=== PATIENT | male | born 2000 | race Caucasian/White ===

== ENCOUNTER 2023-05-05 13:00 | Emergency (ER) | payer OTHER ==
[2023-05-05 14:56] LABS: BASO % 0.8 % (0-2.0); EOS % 3.9 % (0-4.5); HEMOGLOBIN 15.7 GM/dL (11.7-16.9); LYMPH % 20.7 % (8-40); MCH 29.2 pg (25.7-33.7); MCHC 33.3 g/dl (32.0-35.9); MEAN CELL VOLUME 87.7 fl (80-96); MEAN PLT VOLUME 9.3 fl (7.5-11.1); MONO % 6.4 % (3.8-10.2); NEUT % 68.2 % (42.8-82.8); PLATELET COUNT 232 10^3/uL (134-434); RBC 5.36 M/mm3 (4.00-5.60); RDW 14.3 % (11.9-15.9); WHITE BLOOD COUNT 7.1 K/mm3 (4.0-10.0)
[2023-05-05 15:12] LABS: CALCIUM 10.2 mg/dL (8.5-10.1)
[2023-05-05 15:13] LABS: ALBUMIN 4.2 g/dl (3.4-5.0); BLOOD UREA NITROGEN 11.8 mg/dL (7-18); MAGNESIUM 2.3 mg/dL (1.8-2.4)
[2023-05-05 15:15] LABS: CREATININE 1.1 mg/dL (0.55-1.3)
[2023-05-05 15:17] LABS: BILIRUBIN,TOTAL 0.5 mg/dL (0.2-1)
[2023-05-05 15:18] LABS: TOT PROT 7.8 g/dl (6.4-8.2)
[2023-05-05 16:09] VITALS: BP 130/80; PULSE 80; RESP 18; TEMP 98.9; BMI 25.1
== END 2023-05-05 16:11 | disposition home or self-care (01) ==
LOC: JER 13:00
DX: R00.2 Palpitations (principal); Z20.822 Contact with and (suspected) exposure to COVID-19
CPT/HCPCS: 0241U-QW; 36415; 71046-TC-FY; 80053; 83735; 84443; 85025; 93005; 93010; 99285-25

== ENCOUNTER 2023-09-21 13:39 | Emergency (ER) | payer OTHER ==
[2023-09-21 13:58] VITALS: BP 123/58; PULSE 68; RESP 18; TEMP 98; BMI 17.7
[2023-09-21] MEDS ORDERED: ALBUTEROL SO4 2.5/IPRATROPIUM 0.5 INH SOL 3 ML VIAL.NEB. NEB ONE (14:57)
[2023-09-21] MEDS: ALBUTEROL SO4 2.5/IPRATROPIUM 0.5 INH SOL 3 ML VIAL.NEB. NEB ONE (15:04)
== END 2023-09-21 15:43 | disposition home or self-care (01) ==
LOC: JER 13:39
PROC: 3E0F7GC Introduction of Other Therapeutic Substance into Respiratory Tract, Via Natural or Artificial Opening (ICD-10-PCS; principal; 2023-09-21)
DX: R07.89 Other chest pain (principal); R06.2 Wheezing; Z20.822 Contact with and (suspected) exposure to COVID-19
CPT/HCPCS: 0241U-QW; 71046-TC-FY; 93005; 93010; 99285-25